=== PATIENT | female | born 1975 | race Hispanic/Latino ===

== ENCOUNTER 2018-05-03 10:15 | Emergency (ER) | payer OTHER ==
--- OUTSIDE RECORDS SUMMARY | 2018-05-03 10:18 | XMS REPORT ---
:1975 Author Organization eClinicalWorks Care Team Providers Name Role Phone Lomeli, Na Provider Role Unavailable Allergies, Adverse Reactions, Alerts Substance Reaction Event Type Wellbutrin Info Not Available Drug Allergy Buproban Info Not Available Drug Allergy Honey Dew Info Not Available Non Drug Allergy Problems Problem Type Condition Code Onset Dates Condition Status Problem Depression with anxiety F41.8 Active Problem Migraine G43.909 Active Problem Foot pain M79.673 Active Problem Obesity E66.9 Active Assessment Gastroesophageal reflux disease K21.9 Active without esophagitis Problem Benign essential HTN I10 Active Assessment Prediabetes R73.03 Active Assessment Vitamin D deficiency E55.9 Active Problem Hyperlipidemia E78.5 Active Problem 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 Problem Depression F32.9 Active Problem Vitamin D deficiency E55.9 Active Problem GERD (gastroesophageal reflux K21.9 Active disease) Assessment Benign essential HTN I10 Active Assessment Intermittent palpitations R00.2 Active Assessment Depression with anxiety F41.8 Active Assessment Hyperlipidemia E78.5 Active Problem Gastroesophageal reflux disease K21.9 Active without esophagitis Problem Intermittent palpitations R00.2 Active Problem Ankle sprain S93.409A Active Assessment Seasonal allergies J30.2 Active Problem Prediabetes R73.03 Active Problem Seasonal allergies J30.2 Active Medications Medication Code Code Instructions Start End Status Dosage System Date Date Zestoretic [facility] 59509500907 10-12.5 MG August 15, Active 1 tablet Orally Once a 2017 day Zantac ND 15490370353 150 MG Orally Active 1 tablet Twice a day at bedtime Hydrochlorothiazide ND 88127429699 12.5 MG Inactive TAKE ONE DAILY Celexa [facility] 05157125621 20 MG Active 1 TAB(S) ORALLY ONCE A DAY FOR [address] Vitamin D [facility] 39969045618 75419 UNIT Active TAKE ONE (Ergocalciferol) WEEKLY X12 WEEKS Results No Known Results Summary Purpose eClinicalWorks Submission
--- OUTSIDE RECORDS SUMMARY | 2018-05-03 10:18 | XMS REPORT ---
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 Problem Depression F32.9 Active Problem Seasonal allergic rhinitis, J30.2 Active unspecified trigger Problem Hyperlipidemia E78.5 Active Problem Screening mammogram, encounter for Z12.31 Active Problem Vitamin D deficiency E55.9 Active Problem GERD (gastroesophageal reflux K21.9 Active disease) Problem Obesity E66.9 Active Problem Benign essential HTN I10 Active Problem Prediabetes R73.03 Active Problem Ankle sprain S93.409A Active Problem Seasonal allergies J30.2 Active Problem Gastroesophageal reflux disease K21.9 Active without esophagitis Problem Depression with anxiety F41.8 Active Problem Intermittent palpitations R00.2 Active Problem Foot pain M79.673 Active Medications Medication Code System Code Instructions Start Date End Date Status Dosage [facility] 84928265044 10 MG Orally Once Nov 21, Active 1 tablet a day 2017 Results No Known Results Summary Purpose eClinicalWorks Submission
--- OUTSIDE RECORDS SUMMARY | 2018-05-03 10:18 | XMS REPORT ---
[...] Seasonal allergic rhinitis, J30.2 Active unspecified trigger Assessment Depression with anxiety F41.8 Active Problem Hyperlipidemia E78.5 Active Assessment Seasonal allergic rhinitis, J30.2 Active unspecified trigger Assessment Gastroesophageal reflux disease K21.9 Active without esophagitis Problem Screening mammogram, encounter for Z.31 Active Problem Vitamin D deficiency E55.9 Active Problem GERD (gastroesophageal reflux K21.9 Active disease) Problem Obesity E66.9 Active Problem Benign essential HTN I10 Active Problem Prediabetes R73.03 Active Assessment Hyperlipidemia E78.5 Active Assessment Benign essential HTN I10 Active Problem Ankle sprain S93.409A Active Problem Seasonal allergies J30.2 Active Assessment Screening mammogram, encounter for Z. Active Problem Gastroesophageal reflux disease K21.9 Active without esophagitis Problem Depression with anxiety F41.8 Active Assessment Prediabetes R73.03 Active Problem Intermittent palpitations R00.2 Active Problem Foot pain M79.673 Active Medications Medication Code Code Instructions Start End Status Dosage System Date Date Zestoretic [facility] 19882757335 10-12.5 MG Active 1 tablet Orally Once a day Zestoretic [facility] 70618864272 10-12.5 MG Active 1 tablet Orally Once a day Vitamin D [facility] 40062476145 54084 UNIT Active TAKE ONE (Ergocalcifero WEEKLY X12 l) WEEKS Celexa [facility] 42503185029 20 MG Active 1 TAB(S) ORALLY ONCE A DAY FOR 30 DAYS Zantac [facility] 18836947551 150 MG Orally Active 1 tablet Twice a day at bedtime Results No Known Results Summary Purpose eClinicalWorks Submission
--- OUTSIDE RECORDS SUMMARY | 2018-05-03 10:18 | XMS REPORT ---
:1975 Author Organization eClinicalWorks Care Team Providers Name Role Phone Lomeli, Na Provider Role Unavailable Allergies, Adverse Reactions, Alerts Substance Reaction Event Type Wellbutrin Info Not Available Drug Allergy Buproban Info Not Available Drug Allergy Honey Dew Info Not Available Non Drug Allergy Problems Problem Type Condition Code Onset Dates Condition Status Assessment Counseling for control, oral Z30.09 Active contraceptives Problem Depression with anxiety F41.8 Active Assessment Prediabetes R73.03 Active Problem Foot pain M79.673 Active Assessment Gastroesophageal reflux disease K21.9 Active without esophagitis Problem Migraine G43.909 Active Problem 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 Problem Depression F32.9 Active Problem Seasonal allergic rhinitis, J30.2 Active unspecified trigger Problem Hyperlipidemia E78.5 Active Assessment Hyperlipidemia E78.5 Active Assessment Depression with anxiety F41.8 Active Problem Screening mammogram, encounter for Z12.31 Active Assessment Seasonal allergic rhinitis, J30.2 Active unspecified trigger Problem Vitamin D deficiency E55.9 Active Problem GERD (gastroesophageal reflux K21.9 Active disease) Problem Obesity E66.9 Active Problem Benign essential HTN I10 Active Problem Prediabetes R73.03 Active Assessment Benign essential HTN I10 Active Assessment Adult general medical exam Z00.00 Active Problem Ankle sprain S93.409A Active Problem Seasonal allergies J30.2 Active Problem Gastroesophageal reflux disease K21.9 Active without esophagitis Problem Intermittent palpitations R00.2 Active Medications Medication Code Code Instructions Start End Status Dosage System Date Date Zestoretic [facility] 05981382470 10-12.5 MG Active 1 tablet Orally Once a day Vitamin D [facility] 02957579370 70809 UNIT Active TAKE ONE (Ergocalcifero WEEKLY X12 l) WEEKS Celexa [facility] 88823733688 20 Active 1 TAB(S) ORALLY ONCE A DAY FOR 30 DAYS Celexa ND 66808497125 20 MG Active 1 TAB(S) ORALLY ONCE A DAY FOR 30 DAYS Zantac [facility] 05152052964 150 MG Orally Active 1 tablet Twice a day at bedtime Singulair [facility] 93254868333 10 MG Orally Nov 21, Active 1 tablet Once a day 2017 Zestoretic [facility] 68631531085 10-12.5 MG Active 1 tablet Orally Once a day Results No Known Results Summary Purpose eClinicalWorks Submission
--- NOTE | 2018-05-03 11:32 | RAD REPORT ---
EXAM DESCRIPTION: RAD - Elbow Right 3 View - 05/03/2018 11:10 am CLINICAL HISTORY: Right elbow swelling FINDINGS: No fracture or dislocation is seen. No bony destructive lesion noted. A small spur extends off of the olecranon
--- NOTE | 2018-05-03 11:57 | EDPHYS ---
Physician Documentation [facility] Name: Yamilka Garcia Age: 42 yrs Sex: Female : 1975 Arrival Date: 05/03/2018 Time: 10:18 Bed 12 Private MD: Unknown, Unknown ED Physician Aquilino Rosen HPI: 05/03 10:34 This 42 yrs old Female presents to ER via Ambulatory with complaints of Elbow jmm Injury. 10:34 The patient or guardian complains of pain. Onset: The symptoms/episode began/occurred jmm last night. This is a 42 year old female with a history of depression, gerd, htn that presents to the ED with complaints of right elbow swelling. Patient states she noticed after a zoomba class yesterday. Patient denies known injury, denies fever. . 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 - Social history:: Smoking status: Patient/guardian denies using tobacco. - Ebola Screening: : Patient denies travel to an Ebola-affected area in the 21 days before illness onset. ROS: 10:34 Constitutional: Negative for fever, chills, and weight loss, Cardiovascular: Negative jmm for chest pain, palpitations, and edema, Respiratory: Negative for shortness of breath, cough, wheezing, and pleuritic chest pain. 10:34 MS/extremity: Positive for pain, swelling. 10:34 All other systems are negative. Exam: 10:34 Constitutional: This is a well developed, well nourished patient who is awake, alert, jmm and in no acute distress. Head/Face: atraumatic. Eyes: EOMI, no conjunctival erythema appreciated ENT: Moist Mucus Membranes Neck: Trachea midline, Supple Chest/axilla: Normal chest wall appearance and motion. Cardiovascular: Regular rate and rhythm. No edema appreciated Respiratory: Normal respirations, no respiratory distress appreciated Abdomen/GI: Non distended, soft Back: Normal ROM Skin: General appearance color normal 10:34 Neuro: Awake and alert, normal gait Psych: Behavior is normal, Mood is normal, Patient is cooperative and pleasant 10:34 Musculoskeletal/extremity: pain and swelling noted to the right elbow posterior, no erythema appreciated, compartments are soft, full radial pulse, NVI. 10:34 Skin: Appearance: Color: normal in color. Vital Signs: 10:20 BP 110 / 54; Pulse 77; Resp 18; Temp 97.8(TE); Pulse Ox 98% on R/A; Weight 89.36 kg tw2 (R); Height 5 ft. 3 in. (160.02 cm); Pain 5/10; 10:20 Body Mass Index 34.90 (89.36 kg, 160.02 cm) tw2 MDM: 10:33 Patient medically screened. [facility] 11:54 Data reviewed: vital signs, nurses notes. Data interpreted: Pulse oximetry: on room air jmm is 98 %. Interpretation: normal. Counseling: I had a detailed discussion with the patient and/or guardian regarding: the historical points, exam findings, and any diagnostic results supporting the discharge/admit diagnosis, radiology results, the need for outpatient follow up, to return to the emergency department if symptoms worsen or persist or if there are any questions or concerns that arise at home. ED course: Afebrile, non toxic in appearance. I do not currently suspect septic joint. patient advised to follow up with orthopedics for further evaluation. Patient understood and agrees with the plan of care. . 05/03 10:34 Order name: Elbow Right 3 View XRAY; Complete Time: 11:34 jm 05/03 11:34 Order name: Sling; Complete Time: 11:42 [facility] Administered Medications: No medications were administered Disposition: 14:08 Co-signature as Attending Physician, Aquilino Rosen MD I agree with the assessment and kdr plan of care. Disposition: 05/03/18 11:56 Discharged to Home. Impression: Olecranon bursitis, right elbow. - Condition is Stable. - Discharge Instructions: Bursitis. - Prescriptions for Ibuprofen 800 mg Oral Tablet - take 1 tablet by ORAL route every 8 hours As needed take with food; 30 tablet. - Medication Reconciliation Form, Thank You Letter, Antibiotic Education, Prescription Opioid Use, Work release form form. - Follow up: Mohamud Manzanares MD; When: 2 - 3 days; Reason: Recheck today's complaints, Continuance of care, Re-evaluation by your physician. Signatures: Dispatcher [employer] EDAquilino Friedman MD MD kdr Mickail, Joel, PA PA jmm Wise, Tara, RN RN tw2 Corrections: (The following items were deleted from the chart) 12:17 11:56 05/03/2018 11:56 Discharged to Home. Impression: Olecranon bursitis, right elbow. tw2 Condition is Stable. Forms are Work release form, Medication Reconciliation Form, Thank You Letter, Antibiotic Education, Prescription Opioid Use. Follow up: Mohamud Manzanares; When: 2 - 3 days; Reason: Recheck today's complaints, Continuance of care, Re-evaluation by your physician. kevin
--- NOTE | 2018-05-03 11:57 | ER ---
Nurse's Notes [facility] Name: Yamilka Garcia Age: 42 yrs Sex: Female : 1975 Arrival Date: 05/03/2018 Time: 10:18 Bed 12 Private MD: Unknown, Unknown Diagnosis: Olecranon bursitis, right elbow Presentation: 05/03 10:19 Presenting complaint: Patient states: my RIGHT elbow is swollen, i noticed it last tw2 night, i didn't do anything to it, no falls, it is warm to the touch. Presenting complaint:. Transition of care: patient was not received from another setting of care. Onset of symptoms was May 03, 2018. Risk Assessment: Do you want to hurt yourself or someone else? Patient reports no desire to harm self or others. Initial Sepsis Screen: Does the patient meet any 2 criteria? No. Patient's initial sepsis screen is negative. Does the patient have a suspected source of infection? No. Patient's initial sepsis screen is negative. Care prior to arrival: None. 10:19 Method Of Arrival: Ambulatory tw2 10:19 Acuity: AVELINO 4 tw2 Triage Assessment: 10:26 General: Appears in no apparent distress. Injury Description: swelling noted to RIGHT tw2 elbow. 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 - Social history:: Smoking status: Patient/guardian denies using tobacco. - Ebola Screening: : Patient denies travel to an Ebola-affected area in the 21 days before illness onset. Screenin:25 Abuse screen: Denies threats or abuse. Nutritional screening: No deficits noted. tw2 Tuberculosis screening: No symptoms or risk factors identified. Fall Risk None identified. Assessment: 10:25 General: Appears in no apparent distress. well groomed, Behavior is calm, cooperative, tw2 appropriate for age. Pain: Complains of pain in right elbow. Cardiovascular: Capillary refill < 3 seconds Patient's skin is warm and dry. Respiratory: Airway is patent Respiratory effort is even, unlabored, Respiratory pattern is regular, symmetrical. GI: No signs and/or symptoms were reported involving the gastrointestinal system. : No signs and/or symptoms were reported regarding the genitourinary system. Derm: No signs and/or symptoms reported regarding the dermatologic system. Musculoskeletal: Circulation, motion, and sensation intact. Range of motion: intact in all extremities, Swelling present in right elbow. 12:17 Reassessment: Patient appears in no apparent distress at this time. No changes from tw2 previously documented assessment. Patient and/or family updated on plan of care and expected duration. Pain level reassessed. Patient is alert, oriented x 3, equal unlabored respirations, skin warm/dry/pink. Vital Signs: 10:20 BP 110 / 54; Pulse 77; Resp 18; Temp 97.8(TE); Pulse Ox 98% on R/A; Weight 89.36 kg tw2 (R); Height 5 ft. 3 in. (160.02 cm); Pain 5/10; 10:20 Body Mass Index 34.90 (89.36 kg, 160.02 cm) tw2 ED Course: 10:18 Patient arrived in ED. sb2 10:19 Unknown, Unknown is Private Physician. sb2 10:20 Triage completed. tw2 10:23 Arm band placed on. tw2 10:24 Juan Carlos Persaud PA is PHCP. jmm 10:24 Aquilino Rosen MD is Attending Physician. jmm 10:25 Clarita Hong RN is Primary Nurse. tw2 10:26 Bed in low position. Call light in reach. Pulse ox on. NIBP on. tw2 11:05 X-ray completed. Portable x-ray completed in exam room. Patient tolerated procedure sw well. 11:10 Elbow Right 3 View XRAY In Process Unspecified. EDMS 11:55 Mohamud Manzanares MD is Referral Physician. m 12:17 No provider procedures requiring assistance completed. Patient did not have IV access tw2 during this emergency room visit. Sling applied to right arm. Administered Medications: No medications were administered Outcome: 11:56 Discharge ordered by MD. brown 12:17 Patient left the ED. tw2 12:17 Discharged to home ambulatory. tw2 12:17 Condition: stable 12:17 Discharge instructions given to patient, Instructed on discharge instructions, follow up and referral plans. medication usage, Demonstrated understanding of instructions, follow-up care, medications, Prescriptions given X 1. Signatures: Dispatcher [employer] EDMS Juan Carlos Persaud PA PA jmm Warren, Shannon sw Wise, Tara RN RN tw2 Madison Bess sb2
== END 2018-05-03 12:17 | disposition home or self-care (01) ==
LOC: ER 10:15
DX: M70.21 Olecranon bursitis, right elbow (principal); I10 Essential (primary) hypertension; F32.9 Major depressive disorder, single episode, unspecified; K21.9 Gastro-esophageal reflux disease without esophagitis; Z88.8 Allergy status to other drugs, medicaments and biological substances; Z91.040 Latex allergy status; Z91.048 Other nonmedicinal substance allergy status
CPT/HCPCS: 99284